=== PATIENT | male | born 1955 | race African-American/Black ===

== ENCOUNTER 2023-08-20 06:25 | Day surgery (SDC) | payer OTHER ==
[2023-08-13 16:01] VITALS: BMI 28.3
[2023-08-20] MEDS ORDERED: LevoFLOXacin D5W 500 mg (100 mL) BAG ONE (07:08)
[2023-08-20] MEDS ORDERED: Sodium Chloride 0.9% 100 ML ONE (07:08)
[2023-08-20] MEDS ORDERED: cefTRIAXone (ROCEPHIN) 2 GM VIAL ONE (07:08)
[2023-08-20] MEDS ORDERED: PROPOFOL 20 ML ONE (07:14)
[2023-08-20] MEDS ORDERED: fentaNYL 50 mcg/mL 1 mL Vial ONE (07:14)
[2023-08-20] MEDS ORDERED: Lidocaine 1% PF 5 ML VIAL ONE (07:38)
[2023-08-20] MEDS ORDERED: Phenazopyridine HCl 100 MG TAB ONE (08:18)
[2023-08-20] MEDS ORDERED: Tamsulosin HCl 0.4 MG CAP ONE (08:18)
== END 2023-08-20 09:45 | disposition home or self-care (01) ==
LOC: SDC 06:25
PROVIDERS: ATTEND Urology
PROC: 0VB03ZX Excision of Prostate, Percutaneous Approach, Diagnostic (ICD-10-PCS; principal; 2023-08-20)
DX: C61 Malignant neoplasm of prostate (principal); N40.1 Benign prostatic hyperplasia with lower urinary tract symptoms; R35.0 Frequency of micturition; R97.20 Elevated prostate specific antigen [PSA]; I10 Essential (primary) hypertension; E78.00 Pure hypercholesterolemia, unspecified; R76.8 Other specified abnormal immunological findings in serum; Z79.899 Other long term (current) drug therapy
CPT/HCPCS: 55700; C1747; J0696; J1956; J2704; J3010; J3490; G0416

== ENCOUNTER 2023-09-24 08:45 | Outpatient (CLI) | payer OTHER ==
[2023-09-24] MEDS ORDERED: Iopamidol 370 76% 100 ML VIAL ONE (10:51)
== END 2023-09-24 08:46 | disposition home or self-care (01) ==
LOC: CT 08:45
PROVIDERS: ATTEND Urology
DX: C61 Malignant neoplasm of prostate (principal)
CPT/HCPCS: 74178; 78306; 82565; A9503; Q9967

== ENCOUNTER 2024-03-12 10:00 | Emergency (ER) | payer OTHER, MEDICARE ==
[2024-03-12 11:02] LABS: #Basophils Less than 0.03 10x3/uL (0.0-0.2); %Basophils 0.2 % (0.0-1.0); %Eosinophils 1.6 % (0.0-10.0); %Lymphocytes 34.5 % (21.0-51.0); %Monocytes 9.3 % (0.0-10.0); %Neutrophils 54.2 % (42.0-75.0); Hematocrit 42.9 % (42.0-52.0); Hemoglobin 14.5 g/dL (14.0-18.0); Mean Corpuscular HGB CONC 33.8 g/dL (32.0-36.0); Mean Corpuscular Volume 79.9 fL (78.0-98.0); Mean Platelet Volume 9.4 fL (7.4-10.4); Platelet Count 306 10x3/uL (130-400); RBC Distribution Width 13.9 % (11.5-14.5); Red Blood Cell (RBC) Count 5.37 mill/uL (4.70-6.10)
[2024-03-12 11:43] LABS: ALT (SGPT) 21 U/L (8-55); AST (SGOT) 31 U/L (5-34); Albumin 4.6 g/dL (3.4-4.8); Alkaline Phosphatase 75 U/L (40-110); Anion Gap 12 mmol/L (10-20); BUN (Urea Nitrogen) 13 mg/dL (8.4-25.7); Bilirubin, Total 0.5 mg/dL (0.2-1.2); Calc. Creatinine Clearance 0 mL/min (70-130); Calcium 9.6 mg/dL (7.8-10.44); Carbon Dioxide 26 mmol/L (23-31); Chloride 103 mmol/L (98-107); Estimated GFR 48; Globulin 3.9 g/dL (2.4-3.5); Glucose 102 mg/dL (83-110); Potassium 4.7 mmol/L (3.5-5.1); Protein, Total 8.5 g/dL (5.8-8.1); Sodium 136 mmol/L (136-145)
[2024-03-12 11:48] LABS: Troponin I Less than 0.010 ng/mL (< 0.028)
== END 2024-03-12 12:48 | disposition home or self-care (01) ==
LOC: ERS 10:00
DX: S29.011A Strain of muscle and tendon of front wall of thorax, initial encounter (principal); R94.4 Abnormal results of kidney function studies; R91.1 Solitary pulmonary nodule
CPT/HCPCS: 36415; 71045; 80053; 84484; 85025; 93005

== ENCOUNTER 2024-03-24 14:31 | Outpatient (CLI) | payer OTHER, MEDICARE | END 2024-03-24 14:32 | disposition home or self-care (01) | LOC: BICCT 14:31 | PROVIDERS: ATTEND Internal Medicine | DX: R91.1 Solitary pulmonary nodule (principal) | CPT/HCPCS: 71250 ==